=== PATIENT | female | born 1970 | race Caucasian/White ===

== ENCOUNTER 2016-10-18 19:45 | Inpatient (IN) | payer SELFPAY ==
[~2016-10-18] VITALS: Ht 157.5 cm; Wt 43.7 kg
[2016-10-18 19:30] VITALS: BP 147/73; PULSE 85; RESP 18; TEMP 97.6; O2SAT 99
[2016-10-18] MEDS ORDERED: ACETAMINOPHEN 325 MG TAB PO PRN (20:15)
[2016-10-18] MEDS ORDERED: ALUMINUM/MAGNESIUM/SIMETH 30 ML CUP PO PRN (20:15)
[2016-10-18] MEDS ORDERED: LORazepam 2 MG/ML VIAL IM PRN (20:15)
[2016-10-18] MEDS ORDERED: MAGNESIUM HYDROXIDE SUSP 30 ML CUP PO PRN (20:15)
[2016-10-18] MEDS: LORazepam 1 MG TAB PO PRN (20:26)
[2016-10-18] MEDS ORDERED: BACITRACIN OINT 0.9 GM PKT TOP PRN (21:30)
[2016-10-18] MEDS ORDERED: INSULIN ASPART 1,000 UNITS/10 ML VIAL SQ ONE (21:30)
[2016-10-18] MEDS ORDERED: diphenhydrAMINE HCL 50 MG CAP PO PRN (22:15)
[2016-10-19] MEDS ORDERED: DEXTROSE 50% IN WATER 50 ML VIAL(D50) IV PUSH PRN (05:00)
[2016-10-19] MEDS ORDERED: GLUCAGON 1 MG/ML VIAL OTHER PRN (05:00)
--- NOTE | 2016-10-19 05:04 | PD.CONS ---
HPI Service [facility] Consult Requested By Dr. Garvin Reason for Consult Assist in management of medical conditions of diabetes and hypothyroidism Primary Care Physician No Primary Care Physician Diagnoses: History of Present Illness 46-year-old female with a history of diabetes, hypertension, neuropathy, hypothyroidism, bipolar and A. fib was a transfer from [facility] after suffering from an overdose of multiple medications. According to [facility] records patient was brought in on October 15 after ingesting a multiple number of different medications, possibly muscle relaxers and sleeping pills. She was intubated for one day. Patient states this was not a suicide attempt but that she was doing multiple drugs and was depressed. Upon admission to [facility] she was positive for cocaine, methamphetamine and marijuana. Patient denies any chest pain, short of breath, fever or chills. She does state that she had diarrhea for one week that resolved 2 days ago. Prior to the diarrhea she was treated for a UTI with antibiotics. She does not currently have a PCP or follow-up with a consumer credit counselor. She states she was told that she does have A. fib but she is not on any blood thinners and only takes a baby aspirin a day. She also does not take any medications for hypertension, but was taking lisinopril at one point. The only medication she takes regularly is Novolin 70/30. Review of Systems Constitutional: DENIES: Fever, Chills Respiratory: DENIES: Cough, Sputum production, Shortness of breath Cardiovascular: DENIES: Chest pain Gastrointestinal: DENIES: Abdominal pain, Constipation, Diarrhea, Nausea, Vomiting Genitourinary: DENIES: Urinary frequency, Hematuria, Dysuria Musculoskeletal: DENIES: Back pain, Neck pain Integumentary: DENIES: Rash Hematologic/lymphatic: DENIES: Lymphadenopathy Immunologic/allergic: DENIES: Urticaria Neurologic: DENIES: Headache Past Family Social History Allergies: Coded Allergies: No Known Allergies (Unverified , 10/18/16) Past Medical History Diabetes Hypertension Hypothyroidism A. fib Bipolar Past Surgical History Patient denies any surgical history Active Ordered Medications Current Medications Medications (Trade) Dose Ordered Sig/Joseph Route Start Time Stop Time Status Last Admin (Ativan) 1 mg Q6H PRN PO 10/18/16 20:15 10/18/16 20:26 (Ativan Inj) 1 mg Q6H PRN IM 10/18/16 20:15 (Tylenol) 650 mg Q4H PRN PO 10/18/16 20:15 (Milk Of Magnesia Liq) 30 ml DAILY PRN PO 10/18/16 20:15 (Mag-Al Plus Susp Liq) 30 ml Q6H PRN PO 10/18/16 20:15 (Bacitracin Oint Packet) 0.9 gm UNSCH PRN TOP 10/18/16 21:30 (Benadryl) 50 mg HS PRN PO 10/18/16 22:15 Family History Family history significant for cardiac disease and drug abuse Social History Tobacco use: 1 PPD Alcohol Use: Denies Illicit drug use: Cocaine, methamphetamine and marijuana, she denies any IV drug use Physical Exam Physical Exam GENERAL: This is a thin patient, in no apparent distress. SKIN: No rashes, ecchymoses or lesions. Cool and dry. HEAD: Atraumatic. Normocephalic. EYES: Pupils equal round and reactive. Extraocular motions intact. No scleral icterus. No injection or drainage. ENT: Nose without bleeding, purulent drainage or septal hematoma. Airway patent. NECK: Trachea midline. No JVD or lymphadenopathy. CARDIOVASCULAR: Regular rate and rhythm without murmurs, gallops, or rubs. RESPIRATORY: Clear to auscultation. Breath sounds equal bilaterally. No wheezes , rales, or rhonchi. GASTROINTESTINAL: Abdomen soft, non-tender, nondistended. No hepato-splenomegaly , or palpable masses. No guarding. MUSCULOSKELETAL: Extremities without clubbing, cyanosis, or edema. No calf tenderness. NEUROLOGICAL: Awake and alert. Motor and sensory grossly within normal limits. Normal speech. Assessment and Plan Problem List: (1) Bipolar 1 disorder ICD Code: F31.9 Status: Chronic (2) HTN (hypertension) ICD Code: I10 Status: Chronic (3) Hypothyroidism ICD Code: E03.9 Status: Chronic (4) Diabetes ICD Code: E11.9 Status: Chronic Assessment and Plan 46-year-old female with a history of diabetes, hypertension, neuropathy, hypothyroidism, bipolar and A. fib was a transfer from [facility] after suffering from an overdose of multiple medications. Bipolar, chronic -Managed by psychiatry Hypertension -Awaiting updated med rec -Monitor vitals Diabetes -Accu-Cheks with sliding scale -Diabetic diet Hypothyroidism -TSH pending -We will reorder home medications once management is updated DVT prophylaxis: Encourage ambulation Written by Kami MARIANO, acting as scribe for Dr. Marsh on 10/19/16 at 0401. All or portions of this note were transcribed by scribe [Kami Vargas]. I, Dr. Alverto Marsh personally performed the history, physical exam, and medical decision making; and confirmed the accuracy of the information in the transcribed note. Authenticated by Dr. Alverto Marsh on 10/19/16 at 0401. Discussed Condition With Patient and an RN Problem Qualifiers (1) Diabetes: Qualified Code: E10.9 - Type 1 diabetes mellitus without complication Kami Vargas Oct 19, 2016 05:04 Alverto Marsh MD Oct 19, 2016 07:06
[2016-10-19 05:49] VITALS: BP 138/85; PULSE 88; RESP 16; TEMP 97.7; O2SAT 97
[2016-10-19] MEDS: INSULIN ASPART SUPPLEMENTAL SCALE SQ SCH ×4 (06:50→21:00)
[2016-10-19] MEDS: LORazepam 1 MG TAB PO PRN ×3 (08:47→22:56)
[2016-10-19 08:54] LABS: ANION GAP 9 MEQ/L (5-15); BICARBONATE 28.8 MEQ/L (21.0-32.0); BLOOD UREA NITROGEN 15 MG/DL (7-18); CHLORIDE 99 MEQ/L (98-107); GLOMERULAR FILTRATION RATE 78 ML/MIN (>89); POTASSIUM 4.3 MEQ/L (3.5-5.1); SODIUM (NA) 137 MEQ/L (136-145)
[2016-10-19 09:05] LABS: HDL CHOLESTEROL 78.2 MG/DL (40.0-60.0); LDL CHOLESTEROL 85 MG/DL (0-99)
--- NOTE | 2016-10-19 10:54 | HHI.HP ---
Provisional Diagnosis Admission Date Oct 18, 2016 at 19:45 [place]. Adjustment disorder with mixed disturbance of emotions and conduct. Certification of Person's Competence To Provide Express and Informed Consent I have personally examined Karen Hollingsworth , a person being served at [facility] on, Oct 19, 2016 10:38. Express and informed consent means consent voluntarily given in writing, by a competent person, after sufficient explanation and disclosure of the subject matter involved to enable the person to make a knowing and willful decision without any element of force, fraud, deceit, duress, or other form of constraint or coercion. This person is 18 years of age or older, is not now known to be incompetent to consent to treatment with a guardian advocate, and does not have a health care surrogate or proxy currently making medical treatment decisions. I have found this person to be one of the following: [x] Competent to provide express and informed consent, as defined above, for voluntary admission to this facility and is competent to provide express and informed consent for treatment. He/she has the consistent capacity to make well reasoned, willful, and knowing decisions concerning his or her medical or mental health treatment. The person fully and consistently understands the purpose of the admission for examination/placement and is fully capable of personally exercising all rights assured under [place] Incompetent to provide express and informed consent to voluntary admission, and this is incompetent to provide express and informed consent to treatment. The person must be transferred to involuntary status and a petition for a guardian advocate filed with the Circuit Court. [] Refusing to provide express and informed consent to voluntary admission but is competent to provide express and informed consent for treatment. The person must be discharged or transferred to involuntary status. Form shall be completed within 24 hours of a person's arrival at the receiving facility and filed in the clinical record of each person: 1. Admitted on a voluntary basis 2. Permitted to provide express and informed consent to his/her own treatment 3. Allowed to transfer from involuntary to voluntary status 4. Prior to permitting a person to consent to his or her own treatment after having been previously found incompetent to consent to treatment. History of Present Illness Capacity: Has Capacity HPI This is a 46-year-old female who was admitted under a [place] act after overdosing on multiple medications including muscle relaxers and sleeping pills. She required intubation. She was also found to be positive for cocaine , methamphetamine and marijuana. She is currently denying suicidality but states she made a mistake by taking these multiple medications. She did not appreciate the gravity and dangerousness of her overdose. Stressors in her life include her chronic illness of diabetes, lack of employment, relationship issues with her fianc, and the of a friend. She has not been to a physician to manage her diabetes or hypertension or thyroid disease and the stressors have also added to her emotional instability. She does feel that her fianc is a source of support but he is also demanding and controlling. According to nursing reports, the fianc wants the patient to go into rehabilitation for drug and alcohol abuse. Thus far the patient has declined. This physician spoke with the nurse as well as reviewing the medical records prior to her admission. Review of Systems ROS Limitations: Clinical Condition Except as stated in HPI: all other systems reviewed are Neg Past Psych History Psychological trauma history Denies. Violence risk - others (6 mos) Minimal. Violence risk - self (6 mos) Moderate and unpredictable while the patient remains abusing drugs. Substance Abuse History Drugs/Alcohol past 12 months Patient states she has not used alcohol for several years. She does admit to ongoing use of cocaine, methamphetamine and marijuana. She has used these drugs on a daily basis. Past Family Social History Coded Allergies: No Known Allergies (Unverified , 10/18/16) Past Medical History Significant for diabetes, hypertension and thyroid disease. Current Medications Medications (Trade) Dose Ordered Sig/Joseph Route Start Time Stop Time Status Last Admin (Ativan) 1 mg Q6H PRN PO 10/18/16 20:15 10/19/16 08:47 (Ativan Inj) 1 mg Q6H PRN IM 10/18/16 20:15 (Tylenol) 650 mg Q4H PRN PO 10/18/16 20:15 (Milk Of Magnesia Liq) 30 ml DAILY PRN PO 10/18/16 20:15 (Mag-Al Plus Susp Liq) 30 ml Q6H PRN PO 10/18/16 20:15 (Bacitracin Oint Packet) 0.9 gm UNSCH PRN TOP 10/18/16 21:30 (Benadryl) 50 mg HS PRN PO 10/18/16 22:15 (D50w (Vial) Inj) 25 ml UNSCH PRN IV PUSH 10/19/16 05:00 (Glucagon Inj) 1 mg UNSCH PRN OTHER 10/19/16 05:00 Family History Significant for drug abuse. Social History Lives with her fianc. Unemployed. Has no children. He continues to use drugs daily. Patient's Strengths (min. 2) Verbal and resilient. Physical Exam GENERAL: SKIN: Warm and dry. HEAD: Normocephalic. EYES: No scleral icterus. No injection or drainage. NECK: Supple, trachea midline. No JVD or lymphadenopathy. CARDIOVASCULAR: Regular rate and rhythm without murmurs, gallops, or rubs. RESPIRATORY: Breath sounds equal bilaterally. No accessory muscle use. GASTROINTESTINAL: Abdomen soft, non-tender, nondistended. MUSCULOSKELETAL: No cyanosis, or edema. BACK: Nontender without obvious deformity. No CVA tenderness. Vital Signs Vital Signs Date Time Temp Pulse Resp B/P Pulse Ox O2 Delivery O2 Flow Rate FiO2 10/19/16 05:49 97.7 88 16 138/85 97 Mental Status Examination Speech: Unremarkable Orientation: x3 Memory: Unremarkable Thought Process: Organized, Goal Directed Thought Content: Unremarkable Hallucination Type: None Attention and Concentration: Good Suicidal Ideation: No Previous Suicide Attempts: No Homicidal Ideation: No Previous Homicide Attempts: No Insight: Fair Judgement: WNL Affect: Good Mood: Appropriate Motor Activity: Normal gait Assessment & Plan Problem List: (1) Adjustment disorder with mixed disturbance of emotions and conduct ICD Code: F43.25 Assessment & Plan Estimated LOS: 2 days 46-year-old female who recently overdosed on multiple medications as well as using cocaine, marijuana and methamphetamine. Patient is currently denying a desire to kill herself but remains at great risk for self -harm due to the recent nature of her overdose requiring intubation. This physician plans to observe and evaluate the patient over the next 24-36 hours and obtain collateral information from her fianc. Axel Gaona MD Oct 19, 2016 10:54
[2016-10-19 12:07] LABS: HEMOGLOBIN A1a 1.6 %; HEMOGLOBIN A1b 2.3 %; HEMOGLOBIN Ao 78.8 %; HEMOGLOBIN LA1C 3.8 %; HEMOGLOBIN P3 4.6 %
[2016-10-19] MEDS: INSULIN ASPART 1,000 UNITS/10 ML VIAL SQ SCH (16:50)
[2016-10-19 20:13] VITALS: BP 117/72; PULSE 77; RESP 16; TEMP 98.2; O2SAT 100
[2016-10-19] MEDS ORDERED: INSULIN DETEMIR 100 UNITS/ML VIAL SQ SCH (21:00)
[2016-10-20 06:24] VITALS: BP 123/57; PULSE 91; RESP 16; TEMP 97.5; O2SAT 98
[2016-10-20] MEDS: INSULIN ASPART SUPPLEMENTAL SCALE SQ SCH ×2 (07:00→11:00)
[2016-10-20] MEDS: INSULIN ASPART 1,000 UNITS/10 ML VIAL SQ SCH ×2 (08:00→12:00)
[2016-10-20] MEDS: LORazepam 1 MG TAB PO PRN (08:04)
--- NOTE | 2016-10-20 10:19 | HHI.PR ---
Subjective Remarks Follow-up visit uncontrolled DM 2, HTN. Patient seen today. States she is doing very well. Patient unable to recall her medications but states she is taking blood pressure medication to protect her kidneys because of diabetes, she is also on 70/30 insulin unable to tell dose, unable to tell who is prescribing her the 70/30. Patient currently does not have a primary care provider to follow up. But states she has an address in [facility] and will be able to follow-up with Dr. Swartz if we can set up discharge follow up. Otherwise, denies pain and discomfort. Denies SOB/ dyspnea. Denies chest pain , palpitations, headaches, dizziness. Denies fevers, chills, n/v/d. Objective Vitals Vital Signs Date Time Temp Pulse Resp B/P Pulse Ox O2 Delivery O2 Flow Rate FiO2 10/20/16 06:24 97.5 91 16 123/57 98 10/19/16 20:13 98.2 77 16 117/72 100 Result Diagram: 10/19/16 0613 Objective Remarks GENERAL: This is a thin-appearing, well-developed patient, in no apparent distress. HEENT: Normocephalic. Pupils equal round and reactive. Nose without bleeding. Airway patent. NECK: Trachea midline. No JVD. Supple. CARDIOVASCULAR: Regular rate and rhythm without murmurs, gallops, or rubs. RESPIRATORY: Clear to auscultation. Breath sounds equal bilaterally. No wheezes , rales, or rhonchi. GASTROINTESTINAL: Abdomen soft, non-tender, nondistended. Bowel Sounds normoactive x4. MUSCULOSKELETAL: Extremities without clubbing, cyanosis, or edema. NEUROLOGICAL: Awake and alert. No focal neuro deficit. CARPIO. Normal speech. A/P Problem List: (1) Bipolar 1 disorder ICD Code: F31.9 Status: Chronic (2) HTN (hypertension) ICD Code: I10 Status: Chronic (3) Hypothyroidism ICD Code: E03.9 Status: Chronic (4) Diabetes ICD Code: E11.9 Status: Chronic Assessment and Plan Patient is 46-year-old female with a history of diabetes, hypertension, neuropathy, hypothyroidism, bipolar and A. fib was a transfer from [facility] after suffering from an overdose of multiple medications. Bipolar, chronic -Managed by psychiatry Hypertension - low-dose lisinopril 5 mg secondary to DM 2 - May DC with lisinopril 5 mg DM 2, uncontrolled - Placed on Levemir 10 units subcutaneous at bedtime, moderate insulin sliding scale -Accu-Cheks with sliding scale, labile - Discuss compliance with Diabetic diet and medication - Patient will be DCd with Levemir 10 units daily, metformin 500 mg twice a day before meals. Patient needs to follow-up with the PCP for medication adjustments. - Current hemoglobin A1c 8.6 Hypothyroidism -TSH within normal -Unable to verify whether patient is taking medications at home for hypothyroidism DVT prophylaxis: Ambulatory Discuss with patient, nursing. Written by Sharmaine Avila, on behalf of Dr. Campuzano on 10/20/16 at . Attending Statement All or portions of this note were transcribed by vicky Avila. I, Dr. Marvel Peterson personally performed the history, physical exam, and medical decision making; and confirmed the accuracy of the information in the transcribed note. Authenticated by Dr. Marvel Peterson on 10/25/16 at 21:46. Problem Qualifiers (1) Diabetes: Sharmaine Bean Oct 20, 2016 10:19 Marvel Howard MD Oct 25, 2016 21:46
[2016-10-20] MEDS ORDERED: METF500T PO (10:22)
[2016-10-20] MEDS ORDERED: LEVEMIR SQ (10:22)
--- NOTE | 2016-10-20 12:32 | HHI.DS ---
Psychiatry Discharge Summary Inpatient Psychiatric care?: Yes Advance Directive: No Reason Not Provided: REFUSES Mental Health AdvanceDirective: No Health Care Proxy: No Admission Admission Date Oct 18, 2016 at 19:45 Admission Diagnosis: (1) Adjustment disorder with mixed disturbance of emotions and conduct ICD Code: F43.25 Brief History This is a 46-year-old female who was admitted under a [place] act after overdosing on multiple medications including muscle relaxers and sleeping pills. She required intubation. She was also found to be positive for cocaine , methamphetamine and marijuana. She is currently denying suicidality but states she made a mistake by taking these multiple medications. She did not appreciate the gravity and dangerousness of her overdose. Stressors in her life include her chronic illness of diabetes, lack of employment, relationship issues with her fianc, and the of a friend. She has not been to a physician to manage her diabetes or hypertension or thyroid disease and the stressors have also added to her emotional instability. She does feel that her fianc is a source of support but he is also demanding and controlling. According to nursing reports, the fianc wants the patient to go into rehabilitation for drug and alcohol abuse. Thus far the patient has declined. This physician spoke with the nurse as well as reviewing the medical records prior to her admission. Tobacco Use In Past 30 Days: No Tobacco Past 30 Days Alcohol Use: Monthly or Less Hospital Course Patient did very well during this brief hospital stay. She participated actively in individual and group therapies. She was pleasant and acknowledged her mistakes and plans to change her behavior in the future. No procedures were accomplished and she was started on no medicines. She will be given a outpatient referral. Results Blood Pressure 123 / 57 Vital Signs Date Time Temp Pulse Resp B/P Pulse Ox O2 Delivery O2 Flow Rate FiO2 10/20/16 06:24 97.5 91 16 123/57 98 Laboratory Tests Test 10/19/16 06:13 Estimat Glomerular Filtration 78 ML/MIN (>89) Rate Random Glucose 413 MG/DL (74-106) Hemoglobin A1c 8.6 % (4.3-6.0) Triglycerides Level 178 MG/DL (42-150) HDL Cholesterol 78.2 MG/DL (40.0-60.0) Laboratory Results Test 10/19/16 06:13 Hemoglobin A1c 8.6 % (4.3-6.0) Triglycerides Level 178 MG/DL (42-150) Cholesterol Level 199 MG/DL (120-200) LDL Cholesterol 85 MG/DL (0-99) HDL Cholesterol 78.2 MG/DL (40.0-60.0) Summary of Procedures None Pending results at discharge: No Medications # of Antipsychotic meds at D/C: 0 Approp Antipsych med options 1 - Minimum of three failed multiple trials of monotherapy. 2 - Documented plan to taper to monotherapy due to previous use of multiple meds OR cross-taper in progress at D/C. 3 - Documentation of augmentation of Clozapine. 4 - Justification other than those listed in allowable values 1-3, document here : Discharge Discharge Date: Oct 20, 2016 Discharge Diagnosis: (1) Adjustment disorder with mixed disturbance of emotions and conduct Diagnosis: Principal ICD Code: F43.25 Mental Status Exam at Disch At the time of this charge the patient was not suicidal homicidal or psychotic. Her cognition was completely intact. She was calm and pleasant and cooperative. She verbally contracted for safety. She understands she must discontinue drug and alcohol abuse. She will seek follow up care on an outpatient basis. Pt Condition on Discharge: Stable Discharge Disposition: Discharge Home Discharge Instructions Diet Instructions: As Tolerated, No Restrictions Activities you can perform: Regular-No Restrictions Scheduled Appointment: Papo Murguia Appointment Date: Oct 23, 2016 Appointment Time: 7:30am Discharge Time <= 30 minutes Discharge/Advance Care Plan Health Problems: (1) Adjustment disorder with mixed disturbance of emotions and conduct Goals to promote your health * To prevent worsening of your condition and complications * To maintain your health at the optimal level Directions to meet your goals Take your medications as prescribed Follow your dietary instruction Follow activity as directed Keep your appointments as scheduled Take your immunizations and boosters as scheduled If your symptoms worsen call your PCP, if no PCP go to Urgent Care Center or Emergency Room For 26/02 questions related to your inpatient stay or results of tests pending at discharge, please contact Dr. Axel Gaona at Smoking is Dangerous to Your Health. Avoid second hand smoking Axel Gaona MD Oct 20, 2016 12:32
== END 2016-10-20 14:10 | disposition home or self-care (01) | DRG 882 ==
LOC: H260 19:45
PROVIDERS: ADMIT Psychiatry & Neurology Psychiatry; ATTEND Psychiatry & Neurology Psychiatry
DX: F43.25 Adjustment disorder with mixed disturbance of emotions and conduct (principal); E11.40 Type 2 diabetes mellitus with diabetic neuropathy, unspecified; I48.91 Unspecified atrial fibrillation; I10 Essential (primary) hypertension; E03.9 Hypothyroidism, unspecified; F17.210 Nicotine dependence, cigarettes, uncomplicated; E11.65 Type 2 diabetes mellitus with hyperglycemia; Z79.4 Long term (current) use of insulin; F10.10 Alcohol abuse, uncomplicated; F14.10 Cocaine abuse, uncomplicated; F15.10 Other stimulant abuse, uncomplicated
CPT/HCPCS: 80048; 80061; 82948; 83036; 84443; 84703; J1815; Q0163